=== PATIENT | female | born 1935 | race Caucasian/White ===

== ENCOUNTER → 2019-02-15 10:07 | Outpatient (CLI) | payer OTHER, SELFPAY | PROVIDERS: PCP Internal Medicine; Visit Provider Internal Medicine | DX: M81.0 Age-related osteoporosis without current pathological fracture (principal); Z78.0 Asymptomatic menopausal state | CPT/HCPCS: 77080 ==

== ENCOUNTER → 2019-03-24 15:34 | Outpatient (CLI) | payer OTHER, SELFPAY ==
--- NOTE | 2019-03-24 | DI.RAD.S_ITS ---
PROCEDURE: XR HIP W PEL IF DONE LT 2V INDICATIONS: Left hip pain TECHNIQUE: AP pelvis with lateral view(s) of the left hip(s). COMPARISON: None. FINDINGS: Bones: No fractures or dislocations. Pelvic ring appears intact. No suspicious bony lesions. There is mild symmetric hip consideration bilaterally. Soft tissues: The visualized bowel gas pattern is normal. Vascular calcifications left thigh consistent with atherosclerosis. IMPRESSION: 1. Mild symmetric hip degeneration bilaterally. 2. Atherosclerosis. Dictated by: Rod Oakley M.D. on 03/24/2019 at 17:44 Approved by: Rod Oakley M.D. on 03/24/2019 at 17:46
== END ==
PROVIDERS: Family Provider Internal Medicine; PCP Internal Medicine; Visit Provider Internal Medicine
DX: M25.552 Pain in left hip (principal); M16.0 Bilateral primary osteoarthritis of hip; I70.202 Unspecified atherosclerosis of native arteries of extremities, left leg
CPT/HCPCS: 73502